=== PATIENT | female | born 1995 | race African-American/Black ===

== ENCOUNTER 2017-04-18 13:05 | Emergency (ER) | payer MEDICAID ==
[~2017-04-18] VITALS: Ht 170.2 cm; Wt 127.0 kg
[~2017-04-18 13:05] MED LIST: DEBROX15 M1 BOTH EARS; FLONASE ALLERG9.9 ML NS; NKM
[2017-04-18] MEDS ORDERED: IBUPROFEN600 MG ORAL (13:26)
[2017-04-18] MEDS ORDERED: BACITRACIN15 GM TOPIC (13:26)
[2017-04-18] MEDS ORDERED: CLARITIN-D 241 EACH PO (13:26)
[2017-04-18] MEDS ORDERED: AFRIN15 ML NASAL (13:26)
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
[2017-04-18 13:38] VITALS: BP 101/76
== END 2017-04-18 13:30 | disposition home or self-care (01) ==
LOC: EMR 13:25
DX: J00 Acute nasopharyngitis [common cold] (principal); T20.27XA Burn of second degree of neck, initial encounter; X08.8XXA Exposure to other specified smoke, fire and flames, initial encounter; Y93.9 Activity, unspecified; Y92.9 Unspecified place or not applicable
CPT/HCPCS: 99284

== ENCOUNTER 2017-11-03 17:46 | Emergency (ER) | payer MEDICAID ==
[~2017-11-03] VITALS: Ht 170.2 cm; Wt 127.0 kg
[~2017-11-03 17:46] MED LIST changes: +AFRIN15 ML NASAL; +BACITRACIN15 GM TOPIC; +CLARITIN-D 241 EACH PO; +IBUPROFEN600 MG ORAL
[2017-11-03] MEDS ORDERED: ALBUTEROL2.5 MG/3 M INH (17:55)
[2017-11-03] MEDS ORDERED: AMOXICILLIN500 MG ORAL (18:09)
[2017-11-03] MEDS ORDERED: IBUPROFEN600 MG ORAL (18:09)
[2017-11-03 18:13] VITALS: BP 119/69
[2017-11-03 18:14] VITALS: BP 119/69
--- NOTE | 2017-11-03 19:49 | Emergency Room Report ---
History of Present Illness General Chief Complaint: Pain Source: Patient Present Illness [facility] The patient is a 22-year-old female presenting for pain to the back of her throat for the past 3 days. Pain described as an 8/10 dull ache it is worse with swallowing. She denies any known sick contacts. She has not tried any medications. She denies other symptoms including cough, fever, chills, dysphagia Allergies: Coded Allergies: No Known Allergies (Unverified , 08/01/16) Patient History Past Medical History: see triage record Pertinent Family History: none Last Menstrual Period: 10/28/17 Now: No Reviewed Nursing Documentation: PMH: Agreed, PSxH: Agreed Nursing Documentation-PMH Past Medical History: No History, Except For Hx Asthma: Yes Review of Systems All Other Systems: negative except mentioned in HPI Physical Exam Vital Signs Date Time Temp Pulse Resp B/P (MAP) Pulse Ox O2 Delivery O2 Flow Rate FiO2 11/03/17 17:51 98.7 75 16 119/69 98 Room Air 98.8 Sp02 EP Interpretation: reviewed, normal General Appearance: no apparent distress, alert, GCS 15, non-toxic Head: normocephalic, atraumatic Eyes: bilateral eye normal inspection, bilateral eye PERRL ENT: hearing grossly normal, no angioedema, normal voice, uvula midline, tonsillar swelling, pharyngeal erythema Neck: full range of motion, supple/symm/no masses Respiratory: chest non-tender, lungs clear, normal breath sounds, speaking full sentences Musculoskeletal: back normal, gait/station normal, normal range of motion, non- tender Neurologic: alert, oriented x3, responsive, motor strength/tone normal, sensory intact, speech normal Psychiatric: judgement/insight normal, memory normal, mood/affect normal, no suicidal/homicidal ideation Skin: normal color, no rash, warm/dry, well hydrated Lymphatic: no adenopathy Medical Decision Making PA Attestation Dr. More is my supervising physician. Patient management was discussed with my supervising physician Diagnostic Impression: Primary Impression: Pharyngitis, acute Qualified Codes: J02.9 - Acute pharyngitis, unspecified ER Course The patient is a 22-year-old female presenting for pain to the back of her throat for the past 3 days Differential diagnosis include but not limited to pharyngitis, sinusitis, AOM, glossitis, among others Physical exam: Vitals within normal limits. Afebrile. No apparent distress HEENT exam: There is bilateral tonsillar edema, erythema. Uvula midline. Moist mucous membranes. Oropharynx patent. There is no cervical lymphadenopathy. Lungs are clear to auscultation bilaterally Skin is warm and dry. No rash The patient will be discharged home with a prescription for amoxicillin, motrin and is given ER precautions. Patient will followup with primary care Last Vital Signs Date Time Temp Pulse Resp B/P (MAP) Pulse Ox O2 Delivery O2 Flow Rate FiO2 11/03/17 18:14 98.7 75 16 119/69 98 Room Air 98.8 Status: improved Disposition: HOME, SELF-CARE Condition: Improved Scripts Amoxicillin* (AMOXIL*) 500 Mg Capsule 500 MG ORAL Q12HR, #20 CAP Prov: RADHA FOUNTAIN 11/03/17 Ibuprofen* (MOTRIN*) 600 Mg Tablet 600 MG ORAL Q8H Y for For Pain, #30 TAB 0 Refills Prov: RADHA FOUNTAIN 11/03/17 Referrals: NOT CHOSEN IPA/,REFERRING (PCP) Patient Instructions: Pharyngitis Additional Instructions: I discussed my findings with the patient. All questions and concerns have been answered. Treatment and medication compliance have been addressed. I advised the patient that they need to follow up with PMD in 3-5 days. Return to ED if pain remains or worsens, cough worsens or remains, you notice blood in your sputum, you notice wheezing, you experience a fever, or if needed for any reason. Patient verbalized understanding of discharge instructions. RADHA FOUNTAIN Nov 03, 2017 19:49
== END 2017-11-03 18:16 | disposition home or self-care (01) ==
LOC: EMR 18:00
DX: J02.9 Acute pharyngitis, unspecified (principal); J45.909 Unspecified asthma, uncomplicated
CPT/HCPCS: 99284

== ENCOUNTER 2019-06-26 16:01 | Emergency (ER) | payer MEDICAID ==
[~2019-06-26] VITALS: Ht 170.2 cm; Wt 120.2 kg
[~2019-06-26 16:01] MED LIST changes: +ALBUTEROL2.5 MG/3 M INH; +AMOXICILLIN500 MG ORAL
[2019-06-26] MEDS ORDERED: Neosporin Oint Ud Pkt TOPIC ONE (16:30)
[2019-06-26] MEDS ORDERED: Tetanus/Diptheria/Pertussis IM ONE (16:30)
[2019-06-26 16:40] VITALS: BP 120/76
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
[2019-06-26] MEDS ORDERED: BACITRACIN-P28.35 GM TP (16:59)
--- NOTE | 2019-06-26 17:15 | NUR ---
ER DISCHARGE NOTE: Patient is cleared to be discharged per ERMD, pt is aox4, on room air, with stable vital signs. Finger splint in place. pt was given dc and prescription instructions, pt was able to verbalize understanding, pt id band removed. pt is able to ambulate with steady gait. pt took all belongings.
== END 2019-06-26 17:00 | disposition home or self-care (01) ==
LOC: EMR 16:55
DX: S61.412A Laceration without foreign body of left hand, initial encounter (principal); R20.2 Paresthesia of skin; J45.909 Unspecified asthma, uncomplicated; Z23 Encounter for immunization; W26.0XXA Contact with knife, initial encounter; Y92.9 Unspecified place or not applicable
CPT/HCPCS: 29130; 90471; 90715; Z7502; 99283